=== PATIENT | male | born 2005 | race Caucasian/White ===

== ENCOUNTER 2024-10-24 13:23 | Emergency (ER) | payer OTHER, SELFPAY ==
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
[2024-10-24] VITALS (9 sets, daily range): BP systolic 146; BP diastolic 93; PULSE 89–107; TEMP 36.6; O2SAT 96; BMI 18.3
--- OUTSIDE RECORDS SUMMARY | 2024-10-24 13:36 | XMS_ITS | Clinical Summary ---
Author Organization [facility] Address [address] [place] [address] Care Team Providers Care Tax Investigator Name Role Phone Unavailable Primary Care Provider Unavailabl e Allergies No known active allergies Medications No known medications Active Problems Problem Noted Date Diagnosed Date Sports physical 02/10/2017 Immunizations Immunization Administration Dates Next Due Tdap 08/14/2023 Social History Tobacco Use Types Packs/Day Years Used Date Smoking Tobacco: Never Smokeless Tobacco: Never Tobacco Cessation:Counseling Given: Not Answered Alcohol Use Standard Drinks/Week Comments No 0 (1 standard drink = 0.6 oz pur e alcohol) AUDIT-C Answer Date Recorded Q1: How often do you have a drink containing alcohol? Never 12/23/2023 Q2: How many drinks containi ng alcohol do you have on a typical day when you are drinking? Patient does not drink Q3: How often do you have si x or more drinks on one occasion? Never 12/23/2023 Sex and Gender Information Value Date Recorded Sex Assigned at Not on file Legal Sex Male 6:31 PM EDT Gender Identity Not on file Sexual Orientation Not on file Last Filed Vital Signs Vital Sign Reading Time Taken Comments Blood Pressure 119/79 01/29/2024 9:22 AM EDT Pulse 73 01/29/2024 9:22 AM EDT Temperature 36.8 C (98.3 F) 12/23/2023 3:47 PM EDT Respiratory Rate 18 12/23/2023 5:37 PM EDT Oxygen Saturation 98% 12/23/2023 5:37 PM EDT Inhaled Oxygen Concentration - - Weight 61.2 kg (135 lb) 01/29/2024 9:22 AM EDT Height 177.8 cm (5' 10 ) 01/29/2024 9:22 AM EDT Body Mass Index 19.37 01/29/2024 9:22 AM EDT Plan of Treatment Health Maintenance Due Date Last Done Comments HIV Screening 2003 Depression Screening 2015 HPV Vaccines (1 - Male 3-dose series) 09/13/2018 Meningococcal B Vaccine (1 of 2 - Standard) 2019 Hepatitis C Screening 09/13/2021 COVID-19 Vaccine (1 - season) 2023 Influenza Vaccine (#1) 2024 8, 01/28/2005, 05/01/2004, Additional history exists DTaP/Tdap/Td Vaccines (8 - Td or Tdap) 08/13/2033 08/14/2023, 11/24/2015, 01/22/2008, Additional history exists Zoster Vaccines (1 of 2) 09/13/2053 008, 02/13/2007, 2004 RSV Immunization for Adults (1 - 1-dose 75+ series) 09/13/2078 Pneumococcal Vaccine: Pediatrics (0 to 5 Years) and At-Risk Patients (6 to 49 Years) Aged Out 2004, 03/27/2004, 01/24/2004, Additional history exists No longer eligible based on patient's age to complete this topic HIB Vaccines Completed 02/13/2007, 12/31, 03/27/2004, Additional history exists Hepatitis B Vaccines Completed 02/13/2007, 03/27/2004, 2003, Additional history exists IPV Vaccines Completed 01/22/2008, 01/29, 2003 MMR Vaccines Completed 01/22/2008, 01/29, 2004 Varicella Vaccines Completed 01/22/2008, 1 04/15/2006, 2004 Meningococcal Vaccine Aged Out 11/24/2015 No [place] steph eligible based on patient's age to complete this topic Hepatitis A Vaccines Aged Out No long er eligible based on patient's age to complete this topic RSV Immunization under 20 Months Aged Out No longer eligible based on patient's age to complete this topic Rotavirus Vaccines Aged Out No longer eligible based on patient's age to complete this topic Insurance [facility] MEDICAID [id number]
--- OUTSIDE RECORDS SUMMARY | 2024-10-24 13:36 | XMS_ITS | Clinical Summary ---
Author Organization [facility] [employer] [facility] Address [id number] [address] 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, hypnotic, or anxiolytic drug ([facility]) (Primary Dx); Lactic acidosis; Tachycardia Discharge Disposition: Home 07/27/2024 Travel from Last 3 Months Family History Medical History Relation Name Comments Heart failure Father Valvular heart disease Paternal Grandfather Relation Name Status Comments Father Paternal Grandfather Alive Social History Tobacco Use Types Packs/Day Years Used Date Smoking Tobacco: Never Smokeless Tobacco: Never Tobacco Cessation:Counseling Given: Not Answered [facility] Utilities Answer Date Recorded In the past 12 months has Sonics, gas, oil, or water [employer] threatened to shut off services in your home? No 07/28/2024 PRAPARE - Transportation Answer Date Re corded In the past 12 months, has l ack of transportation kept you from medical appointments or from getting medications? No 07/01 In the past 12 months, has l ack of transportation kept you from meetings, work, or from getting things needed for daily living? No 07/28/2024 Housing Instability Answer Date Recorde d Are you worried or concerned that in the next two months you may not have stable housing that you own, rent or stay in as a part of a household? No 07/28/2024 Hunger Screening Answer Date Recorded Within the past 12 months we worried whether our food would run out before we got money to buy more. Never True 07/28/2024 Within the past 12 months th e food we bought just didn't last and we didn't have money to get more. Never True 07/28/2024 Sex and Gender Information Value Date Recorded Sex Assigned at Not on file Legal Sex Male 11:38 PM EDT Gender Identity Not on file Sexual Orientation Not on file Last Filed Vital Signs Vital Sign Reading Time Taken Comments Blood Pressure 129/96 07/29/2024 8:11 AM EDT reported to nurse Pulse 75 07/29/2024 8:11 AM EDT Temperature 36.6 C (97.9 F) 07/29/2024 8:11 AM EDT Respiratory Rate 16 07/29/2024 8:11 AM EDT Oxygen Saturation 100% 07/29/2024 8:1 1 AM EDT Inhaled Oxygen Concentration - - Weight 61.1 kg (134 lb 11.2 oz) 07/28/2024 5:56 AM EDT Height 180.3 cm (5' 11 ) 07/28/2024 5:5 6 AM EDT Body Mass Index 18.79 07/28/2024 5:56 AM EDT Plan of Treatment Health Maintenance Due Date Last Done Comments Depression Screening 2015 Influenza Vaccine 11/29/2024 01/22/2008, , 05/01/2004, Additional history exists Tobacco Screening 07/27/2025 07/27/2024 Adult BMI Screening 07/28/2025 07/28/2024 DTaP,Tdap and Td Vaccines (7 - Td or Tdap) 08/13/2033 08/14/2023, 01/22/2008, 02/13/2007, Additional history exists Goals Goal Patient Goal Type Associated Problems Recent Progress Patient-Stated? Author Return to [facility] General Yes Marivel Florian, RN Note: Evaluation of progress towards goal: Patient plans to return to [facility]. Medical Devices Not on file Procedures Procedure Name Priority Date/Time Associated Diagnosis Comments CBC WITH AUTO DIFFERENTIAL Routine 07/29/2024 4:17 AM EDT MAGNESIUM Routine 07/29/2024 4:17 AM EDT COMPREHENSIVE METABOLIC PANEL Routine 07/29/2024 4:17 AM EDT EXTRA TUBES BLUE TOP Routine 07/29/2024 4:15 AM EDT EXTRA TUBES Routine 07/29/2024 4:15 AM EDT EXTRA TUBES BLUE TOP Routine 07/28/2024 9:20 AM EDT EXTRA TUBES Routine 07/28/2024 9:20 AM EDT COMPREHENSIVE METABOLIC PANEL STAT Add-on 07/28/2024 9:14 AM EDT CBC WITH AUTO DIFFERENTIAL STAT 07/28/2024 9:14 AM EDT LACTATE W/ REFLEX STAT 07/28/2024 6:4 3 AM EDT ER EXTRA URINE CULTURE Routine 07/28/2024 6:23 AM EDT URINALYSIS STAT 07/28/2024 5:56 AM EDT DRUG SCREEN, URINE STAT 07/28/2024 5: 56 AM EDT XR CHEST 1 VW STAT 07/28/2024 2:42 AM EDT LACTATE W/ REFLEX STAT 07/28/2024 2:0 6 AM EDT ETHANOL STAT Add-on 07/28/2024 2:06 AM EDT ECG 12-LEAD STAT 07/28/2024 2:00 AM EDT EXTRA TUBES BLUE TOP Routine 07/28/2024 12:40 AM EDT EXTRA TUBES Routine 07/28/2024 12:40 AM EDT LIPASE STAT 07/28/2024 12:39 AM EDT COMPREHENSIVE METABOLIC PANEL STAT 07/28/2024 12:39 AM EDT CBC WITH AUTO DIFFERENTIAL STAT 07/28/2024 12:39 AM EDT ECG 12-LEAD STAT 07/28/2024 12:36 AM EDT PM ED CRITICAL CARE Routine 07/28/2024 1 2:36 AM EDT from Last 3 Months Results * (ABNORMAL) CBC auto differential (07/29/2024 4:17 AM EDT) Only the most recent of3 resultswithin the time period is included. WBC 4.9 4 - 11 x10E9/L 07/29/2024 5:12 AM EDT [facility] RBC Count 3.82(L) 4.1 - 5.7 X10E12/L 07/29/2024 5:12 AM EDT [facility] Hemoglobin 13.4 13 - 17 g/dL 07/29/2024 5:12 AM EDT [facility] Hematocrit 38.1(L) 39 - 50 % 07/29/2024 5:12 AM EDT [facility] MCV 100 80 - 100 fL 07/29/2024 5:12 AM EDT [facility] MCH 35.0(H) 27 - 34 pg 07/29/2024 5:12 AM EDT [facility] MCHC 35.0 32 - 36 g/dL 07/29/2024 5:12 AM EDT [facility] RDW 14.0 11.5 - 15 % 07/29/2024 5:12 AM EDT [facility] Platelet Count 102(L) 150 - 450 X10E9/L 07/29/2024 5:12 AM EDT [facility] MPV 8.2 7 - 12 fL 07/29/2024 5:12 AM EDT [facility] Neutrophils % 67.8 % 07/29/2024 5:12 AM EDT [facility] Lymphocytes % 20.5 % 07/29/2024 5:12 AM EDT [facility] Monocytes % 8.8 % 07/29/2024 5:12 AM EDT [facility] Eosinophils % 2.0 % 07/29/2024 5:12 AM EDT [facility] Basophils % 0.9 % 07/29/2024 5:12 AM EDT [facility] Neutrophils Absolute (A) 3.3 10*3/uL 07/29/2024 5:12 AM EDT [facility] Lymphocytes Absolute 1.0 10*3/uL 07/29/2024 5:12 AM EDT [facility] Monocytes Absolute 0.4 10*3/uL 07/29/2024 5:12 AM EDT [facility] Eosinophils Absolute 0.1 10*3/uL 07/29/2024 5:12 AM EDT [facility] Basophils Absolute 0.0 10*3/uL 07/29/2024 5:12 AM EDT [facility] Differential Type AUTOMATED DIFFERENTIAL 07/29/2024 5:12 AM EDT [facility] Blood 07/29/2024 4:17 AM EDT 07/29/2024 4:55 AM EDT us Trang Good [employer]IVE [employer]ING MACHINE MECHANIC LAB BLOOD ORDERABLES Final Result [facility] [address] [place] [address], * Magnesium (07/29/2024 4:17 AM EDT) MAGNESIUM 1.9 1.8 - 2.6 mg/dL 07/29/2024 6:11 AM EDT [facility] Blood 07/29/2024 4:17 AM EDT 07/29/2024 4:55 AM EDT us Trang Florentino CIFUENTESNOnesimoPRINTING MACHINE MECHANIC LAB BLOOD ORDERABLES Final Result [facility] [address] [place] [address], [place] * (ABNORMAL) Comprehensive metabolic panel (07/29/2024 4:17 AM EDT) Only the most recent of3 resultswithin the time period is included. SODIUM 133(L) 134 - 146 mmol/L 07/29/2024 6:11 AM EDT [facility] POTASSIUM 3.6 3.5 - 5.0 mmol/L 07/29/2024 6:11 AM EDT [facility] CHLORIDE 103 98 - 109 mmol/L 07/29/2024 6:11 AM EDT [facility] CARBON DIOXIDE 25 22 - 32 mmol/L 07/29/2024 6:11 AM EDT [facility] ANION GAP 5 5 - 15 mmol/L 07/29/2024 6:11 AM EDT [facility] BLOOD UREA NITROGEN 8 5 - 23 mg/dL 07/29/2024 6:11 AM EDT [facility] CREATININE 0.69(L) 0.70 - 1.20 mg/dL 07/29/2024 6:11 AM EDT [facility] Comment:METHOD TRACEABLE TO IDMS STANDARD GLUCOSE 79 65 - 99 mg/dL 07/29/2024 6:11 AM EDT [facility] CALCIUM 8.5 8.5 - 10.5 mg/dL 07/29/2024 6:11 AM EDT [facility] TOTAL PROTEIN 7.1 6.0 - 8.0 g/dL 07/29/2024 6:11 AM EDT [facility] ALBUMIN 4.0 3.2 - 5.3 g/dL 07/29/2024 6:11 AM EDT [facility] ALKALINE PHOSPHATASE 87 39 - 130 U/L 07/29/2024 6:11 AM EDT [facility] AST 78(H) <=41 U/L 07/29/2024 6:11 AM EDT [facility] ALT 51(H) <=40 U/L 07/29/2024 6:11 AM EDT [facility] BILIRUBIN,TOTAL 1.0 0.3 - 1.2 mg/dL 07/29/2024 6:11 AM EDT [facility] EGFR Non-Race Dependent >90 >=60 ml/min/1.7 3sq.m 07/29/2024 6:11 AM EDT [facility] Comment: eGFR not reported due to non-numeric value for Creatinine. Reported eGFR is based on the CKD-EPI 2020 equation that does not use a race coefficient. Blood 07/29/2024 4:17 AM EDT 07/29/2024 4:55 AM EDT us Trang ROSE LAB BLOOD ORDERABLES Final Result [address] [place] [address], [place] * Light Blue Top (07/29/2024 4:15 AM EDT) Only the most recent of3 resultswithin the time period is included. Extra Tube Auto Resulted 07/29/2024 6:04 AM EDT [facility] Blood Venous blood / Unknown 07/29/2024 4:15 AM EDT 07/29/2024 4:56 AM EDT us Pedrito Germain MD LAB BLOOD ORDERABLES Final Resu lt [address] [place] [address], [place] * Lactate w/ Reflex (07/28/2024 6:43 AM EDT) Only the most recent of2 resultswithin the time period is included. LACTATE W/REFLEX 1.1 0.4 - 2.0 mmol/L 07/28/2024 7:03 AM EDT [facility] Blood Venous blood / Unknown 07/28/2024 6:43 AM EDT 07/28/2024 6:47 AM EDT Narrative [facility] - 07/28/2024 7:03 AM EDT Result did not trigger repeat Lactate, re-order if needed. us Matthew Jacinto DO LAB BLOOD ORDERABLES Final Resul t Performing Organization Address City/[facility]/ZIP Co de Phone Number [address] [place] [address], [place] * ER EXTRA URINE CULTURE (07/28/2024 6:23 AM EDT) Extra Tube 07/28/2024 5:11 PM EDT [facility] Urine 07/28/2024 6:23 AM EDT 07/28/2024 6:24 AM EDT us Pedrito Germain MD URINE ORDERABLES Final Result Performing Organization Address City/[facility]/ZIP Co de Phone Number [address] [place] [address], [place] * (ABNORMAL) Drug Screen, Urine (07/28/2024 5:56 AM EDT) AMPHETAMINE/METHAM P Negative Negative 07/28/2024 6:55 AM EDT [facility] Comment:AMPH/METH screening cut off = 1000 ng/mL COCAINE METABOLITE Negative Negative 2024 6:55 AM EDT [facility] Comment:Cocaine screening cu t off value = 300 ng/mL ECSTASY Negative Negative 07/28/2024 6:55 AM EDT [facility] Comment:Ecstasy screening cu t off value = 500 ng/mL METHADONE Negative Negative 07/28/2024 6:55 AM EDT [facility] Comment:Methadone screening cut off value = 300 ng/mL. OPIATES Negative Negative 07/28/2024 6:55 AM EDT [facility] Comment: Opiates screening cut off value = 300 ng/mL This test is used for the detection of codeine, hydrocodone (>1000 ng/mL), morphine and hydromorphone (>900 ng/mL) in urine. OXYCODONE Negative Negative 07/28/2024 6:55 AM EDT [facility] Comment: Oxycodone screening cut off value = 300 ng/mL This test is used for the detection of oxycodone and oxymorphone in urine. PHENCYCLIDINE Negative Negative 07/28/2024 6:55 AM EDT [facility] Comment:Phencyclidine screen ing cut off value = 25 ng/mL CANNABINOIDS Negative Negative 07/28/2024 6:55 AM EDT [facility] Comment:Cannabinoids/THC scr eening cut off value = 50 ng/mL Urine Barbiturates Positive(A) Negative 07/28 6:55 AM EDT [facility] Comment:Barbiturates screeni ng cut off value = 200 ng/mL BENZODIAZEPINES Negative Negative 6:55 AM EDT [facility] Comment:Benzodiazepines scre ening cut off value = 200 ng/mL Urine Urine specimen collection, clean catch / Unknown 07/28/2024 5:56 AM EDT 07/28/2024 6:10 AM EDT us Matthew Jacinto DO URINE ORDERABLES Final Result [facility] [address] [place] [address], [place] * (ABNORMAL) Urinalysis (07/28/2024 5:56 AM EDT) COLOR Yellow Yellow 07/28/2024 6:54 AM EDT [facility] TURBIDITY Clear Clear 07/28/2024 6:54 AM EDT [facility] SPECIFIC GRAVITY 1.015 1.003 - 1.035 07/28/2024 6:54 AM EDT [facility] NITRITE Negative Negative 07/28/2024 6:54 AM EDT [facility] PH,URINE 7.5 5.0 - 8.5 07/28/2024 6:54 AM EDT [facility] LEUKOCYTE ESTERASE Negative Negative 07/28/2024 6:54 AM EDT [facility] PROTEIN Trace(A) Negative 07/28/2024 6:54 AM EDT [facility] KETONES (URINE) 15 mg/dL(A) Negative 07/29/19 6:54 AM EDT [facility] UROBILINOGEN 0.2 eu/dL 0.2 eu/dL, 1.0 eu/dL 07/28/2024 6:54 AM EDT [facility] BILIRUBIN (URINE) Negative Negative 07/28/2024 6:54 AM EDT [facility] BLOOD/HGB Negative Negative 07/28/2024 6:54 AM EDT [facility] GLUCOSE (URINE) Negative Negative, 250 mg/dL 07/28/2024 6:54 AM EDT [facility] Urine Urine specimen collection, clean catch / Unknown 07/28/2024 5:56 AM EDT 07/28/2024 6:10 AM EDT Narrative [facility] - 07/28/2024 6:54 AM EDT Urine received without preservative. Delays in transport may affect results. Interpret with caution. A clinical correlation is recommended. us Matthew Jacinto DO URINE ORDERABLES Final Result [facility] [address] [place] [address], [place] * X-ray chest 1 view (07/28/2024 2:42 AM EDT) Anatomical Region Laterality Modality Body, Chest N/A Computed Radiogr aphy 07/28/2024 2:46 AM EDT Narrative 07/28/2024 2:47 AM EDT Clinical history: Cough. Rapid heart rate. Comparisons: None Findings: AP portable upright chest radiograph obtained at 2:34 AM. Heart size and pulmonary vasculature appear within normal limits. Lungs appear clear. No pleural effusion nor pneumothorax. IMPRESSION: No evidence for acute cardiopulmonary disease. Finalized by Satish Flannery MD on 07/28/2024 2:47 AM Procedure Note Satish Flannery MD - 07/28/2024 Clinical history: Cough. Rapid heart rate. Comparisons: None Findings: AP portable upright chest radiograph obtained at 2:34 AM. Heartsize and pulmonary vasculature appear within normal limits. Lungs appearclear. No pleural effusion nor pneumothorax. IMPRESSION: No evidence for acute cardiopulmonary disease. Finalized by Satish Flannery MD on 07/28/2024 2:47 AM us Matthew Jacinto DO IMG DIAGNOSTIC IMAGING ORDERABLE S Final Result * Ethanol (07/28/2024 2:06 AM EDT) ETHANOL <0.010 <=0.080 g/dL 07/28/2024 2:25 AM EDT [facility] Comment: This report is intended for use in clinical monitoring or management of patients. Blood Venous blood / Unknown 07/28/2024 2:06 AM EDT 07/28/2024 2:08 AM EDT us Matthew Jacinto DO LAB BLOOD ORDERABLES Final Resul t [facility] [address] [place] [address], * Electrocardiogram, 12-lead (07/28/2024 2:00 AM EDT) Only the most recent of2 resultswithin the time period is included. 07/28/2024 2:00 AM EDT Narrative [facility] - 07/28/2024 3:09 AM EDT us Matthew Jacinto DO ECG ORDERABLES Final Result [facility] * (ABNORMAL) Lipase (07/28/2024 12:39 AM EDT) LIPASE 56(H) 17 - 40 U/L 07/28/2024 1:07 AM EDT [facility] Blood Venous blood / Unknown 07/28/2024 12:39 AM EDT 07/28/2024 12:45 AM EDT us Matthew Jacinto DO LAB BLOOD ORDERABLES Final Resul t Performing Organization Address [facility] Co de Phone Number [facility] [address] [place] [address], * Critical Care (07/28/2024 12:36 AM EDT) Narrative Matthew Jacinto DO - 07/28/2024 12:36 AM EDT Matthew Jacinto DO 07/28/2024 3:33 AM Critical Care Performed by: Matthew Jacinto DO Authorized by: Matthew Jacinto DO Critical care provider statement: Critical care time (minutes): 35 Critical care time was exclusive of: Separately billable procedures and treating other patients Critical care was necessary to treat or prevent imminent or life-threatening deterioration of the following conditions: Toxidrome Critical care was time spent personally by me on the following activities: Development of treatment plan with patient or surrogate, discussions with primary provider, evaluation of patient's response to treatment, examination of patient, interpretation of cardiac output measurements, obtaining history from patient or surrogate, ordering and performing treatments and interventions, ordering and review of laboratory studies, ordering and review of radiographic studies, pulse oximetry, re-evaluation of patient's condition and review of old charts I assumed direction of critical care for this patient from another provider in my specialty: no Care discussed with: admitting provider us Matthew A Park DO PROCEDURE/MINOR SURGICAL ORDERAB LES Final Result from Last 3 Months Insurance [facility] MEDICAID Advance Directives * Full Code (Latest Code Status on File) Date Activated Date Inactivated Comments 07/28/2024 3:21 AM 07/29/2024 6:01 PM Care Teams Rn Clinical Coordinator Relationship Specialty Start Date End Date No Pcp, No Pcp GRANT Umanzor [id number] PCP - General Family Medicine 07/27/24
--- OUTSIDE RECORDS SUMMARY | 2024-10-24 13:36 | XMS_ITS | Clinical Summary ---
Author Organization [facility] Address [facility] [place] [address] Care Team Providers Care Palm Gatherer Name Role Phone Unavailable Primary Care Provider Unavailabl e Allergies No known active allergies Medications cephALEXin (KEFLEX) 500 mg capsule Take 1 capsule by mouth four times daily for 5 days. 20 capsule 10/02/2024 10/08/19 25 Encounters Date Type Department Care Team Description 10/20/2024 1:50 PM EDT Office Visit Orthopaedic Surgery [facility] [address] [place] [address] Ericka Vasquez PA-C Unspecified open wound of left index finger without damage to nail, initial encounter 10/02/2024 2:09 PM EDT - 10/02/2024 3:57 PM EDT Emergency [facility] [address] [place] [address] [place] Discharge Disposition: Home 10/02/2024 Travel 07/27/2024 10:48 AM EDT - 07/27/2024 4:12 PM EDT Emergency [facility] Emergency Department [address] [place] [id number] detox Discharge Disposition: AMA/Discontinuation of Care-Use additional discharge code 07/27/2024 Travel from Last 3 Months Immunizations Immunization Administration Dates Next Due tetanus diphtheria pertussis (Tdap) vaccine, age 7+ yr (ADACEL, BOOSTRIX) 08/14/2023 Social History Tobacco Use Types Packs/Day Years Used Date Smoking Tobacco: Never Assessed Area Deprivation Index Answer Date Jaxon rded National Score (1-100), lower number is lower ri sk 57 10/03/2024 State Score (1-10), lower number is lower risk 3 10/03/2024 Data from: https://www.neighborhoodatlas.medicine.[facility]/. Last address used for calculation [address] 10/03/2024 Sex and Gender Information Value Date Recorded Sex Assigned at Not on file Legal Sex Male 10:48 AM EDT Gender Identity Not on file Sexual Orientation Not on file Last Filed Vital Signs Vital Sign Reading Time Taken Comments Blood Pressure 112/87 10/02/2024 2:12 PM EDT Pulse 85 10/02/2024 2:45 PM EDT Temperature 36.6 C (97.8 F) 10/02/2024 2:12 PM EDT Respiratory Rate 18 10/02/2024 2:12 PM EDT Oxygen Saturation 98% 10/02/2024 2:45 PM EDT Inhaled Oxygen Concentration - - Weight 64.1 kg (141 lb 5 oz) 10/02/2024 2:12 PM EDT Height - - Body Mass Index - - Plan of Treatment Upcoming Encounters Date Type Department Care Team (Late st Contact Info) Description 11/10/2024 1:50 PM EDT Office Visit Orthopaedic Surgery [facility] [address] [place] [address] Ericka Vasquez PA-C [address] [place], [place] [id number] Return in about 3 weeks (around 11/10/2024) for Follow-up with Kary Vasquez, with OT. Health Maintenance Due Date Last Done Comments Peds To Adult Transition Ini tial Discussion 2015 Peds To Adult Transition Elizabeth ual Assessment 09/13/2017 HPV Vaccine (1 - Male 3-dose series) 09/13/2018 Meningococcal B Vaccine (1 o f 2 - Standard) 2019 Anxiety Screening 09/13/2021 Depression Screening 09/13/2021 HIV Screening 09/13/2021 Hepatitis C Screening 09/13/2021 Influenza Vaccine (#1) 2024 8, 01/28/2005, 05/01/2004, Additional history exists DTaP,Tdap,Td Vaccine (8 - Td or Tdap) 08/13/2033 08/14/2023, 11/24/2015, 01/22/2008, Additional history exists Hepatitis B Vaccine Completed 03/27/2004, 2003, 2003 Procedures Procedure Name Priority Date/Time Associated Diagnosis Comments ED NOTEWRITER PROCEDURE SPLINT APPLICATION Routine 10/02/2024 3:49 PM EDT XR DIGIT GENERAL 3V FRONTAL/LAT/OBL LEFT STAT 10/02/2024 2:43 PM EDT HIGH SENSITIVITY TROPONIN T (SECOND) STAT 07/27/2024 12:13 PM EDT XR CHEST 2V FRONTAL/LAT STAT 07/27/2024 11:55 AM EDT HIGH SENSITIVITY TROPONIN T (INITIAL) STAT 07/27/2024 11:08 AM EDT CBC + DIFF STAT 07/27/2024 11:08 AM EDT COMPREHENSIVE METABOLIC PANEL STAT 07/27/2024 11:08 AM EDT EKG Routine 07/27/2024 10:56 AM EDT ECG COMPLETE STAT 07/27/2024 10:56 AM EDT from Last 3 Months Results * SPLINT APPLICATION (10/02/2024 3:49 PM EDT) Narrative Anna Sandoval MD - 10/02/2024 3:49 PM EDT Anna Sandoval MD 10/02/2024 7:24 PM SPLINT APPLICATION Date/Time: 10/02/2024 3:49 PM Performed by: Edel Hagan APRN.OFFICE BOOKKEEPER Authorized by: Edel Hagan APRN.OFFICE BOOKKEEPER Pre-procedure details: Sensation: Normal Skin color: Vergas Procedure details: Laterality: Left Location: Finger Finger: L index finger Splint type: Finger Supplies: Aluminum splint Post-procedure details: Pain: Improved Sensation: Normal Skin color: [place] Patient tolerance of procedure: Tolerated well, no immediate complications us Edel Hagan APRN.OFFICE BOOKKEEPER PROCEDURE Final R esult * XR DIGIT GENERAL 3V FRONTAL/LAT/OBL LEFT (10/02/2024 2:43 PM EDT) Anatomical Region Laterality Modality Fingers Radiographic Belia ging 10/02/2024 2:43 PM EDT Impressions 10/02/2024 3:34 PM EDT IMPRESSION: No acute osseous abnormality in the left index finger. Director Critical Care: LAURA Transcribe Date/Time: Oct 02 2024 3:30P Dictated by : EMANI ESPARZA MD This examination was interpreted and the report reviewed and electronically signed by: EMANI ESPARZA MD on Oct 02 2024 3:32PM EST Narrative 10/02/2024 3:34 PM EDT * * *Final Report* * * DATE OF EXAM: Oct 02 2024 2:43PM [id number] - XR DIGIT 3V FRONTAL/LAT/OBL LT / PROCEDURE REASON: Hand trauma, no prior imaging * * * * Physician Interpretation * * * * XR DIGIT 3V FRONTAL/LAT/OBL LT INDICATION: Left index finger laceration and bleeding, Hand trauma, no prior imaging COMPARISON: None. TECHNIQUE: Left index finger radiograph; 3 views RESULT: No acute fracture, dislocation or suspicious osseous lesion. Partially imaged likely old fracture deformity of the styloid process in the ulna. The joint spaces and anatomic alignment are maintained. Procedure Note Provider, [facility] - 10/02/2024 * * *Final Report* * * DATE OF EXAM: Oct 02 2024 2:43PM [id number] - XR DIGIT 3V FRONTAL/LAT/OBL LT / PROCEDURE REASON: Hand trauma, no prior imaging * * * * Physician Interpretation * * * * XR DIGIT 3V FRONTAL/LAT/OBL LT INDICATION: Left index finger laceration and bleeding, Hand trauma, no prior imaging COMPARISON: None. TECHNIQUE: Left index finger radiograph; 3 views RESULT: No acute fracture, dislocation or suspicious osseous lesion. Partially imaged likely old fracture deformity of the styloid process in the ulna. The joint spaces and anatomic alignment are maintained. IMPRESSION IMPRESSION: No acute osseous abnormality in the left index finger. Director Critical Care: CISCOB Transcribe Date/Time: Oct 02 2024 3:30P Dictated by : EMANI ESPARZA MD This examination was interpreted and the report reviewed and electronically signed by: EMANI ESPARZA MD on Oct 02 2024 3:32PM EST us Edel Hagan UNIT TRUST MANAGER.OFFICE BOOKKEEPER RAD-PAMA Final R esult * HIGH SENSITIVITY TROPONIN T (SECOND) (07/27/2024 12:13 PM EDT) YO High Sensitivity <6 <12 ng/L 07/27/2024 12:55 PM EDT [facility] Blood BLOOD SPECIMEN / Unknown Venipuncture / Unknown 07/27/2024 12:13 PM EDT 07/27/2024 12:25 PM EDT Gt Dolores LABORATORY Final Result [facility] [address] [place] [address], [place] * XR CHEST 2V FRONTAL/LAT (07/27/2024 11:55 AM EDT) Anatomical Region Laterality Modality Chest Radiographic Belia ging 07/27/2024 11:5 5 AM EDT Impressions 07/27/2024 12:11 PM EDT IMPRESSION: No acute radiographic abnormality. Director Critical Care: PSCB Transcribe Date/Time: Jul 27 2024 12:08P Dictated by : JESUS TANNER MD This examination was interpreted and the report reviewed and electronically signed by: JESUS TANNER MD on Jul 27 2024 12:09PM EST Narrative 07/27/2024 12:11 PM EDT * * *Final Report* * * DATE OF EXAM: Jul 27 2024 11:55AM [id number] - XR CHEST 2V FRONTAL/LAT / PROCEDURE REASON: Chest Pain * * * * Physician Interpretation * * * * EXAMINATION: CHEST RADIOGRAPH (2 VIEW FRONTAL & LATERAL) CLINICAL HISTORY: Chest Pain MQ: XC2_6 EXAM DATE/TIME: 07/27/2024 11:55 AM COMPARISON: No relevant prior studies available. RESULT: Lines, tubes, and devices: None. Lungs and pleura: No consolidation. No lung mass. No pleural effusion. No pneumothorax. Cardiomediastinal silhouette: Normal cardiomediastinal silhouette. Bones and soft tissues: Unremarkable. Procedure Note Provider, [facility] - 07/27/2024 * * *Final Report* * * DATE OF EXAM: Jul 27 2024 11:55AM [id number] - XR CHEST 2V FRONTAL/LAT / PROCEDURE REASON: Chest Pain * * * * Physician Interpretation * * * * EXAMINATION: CHEST RADIOGRAPH (2 VIEW FRONTAL & LATERAL) CLINICAL HISTORY: Chest Pain MQ: XC2_6 EXAM DATE/TIME: 07/27/2024 11:55 AM COMPARISON: No relevant prior studies available. RESULT: Lines, tubes, and devices: None. Lungs and pleura: No consolidation. No lung mass. No pleural effusion. No pneumothorax. Cardiomediastinal silhouette: Normal cardiomediastinal silhouette. Bones and soft tissues: Unremarkable. IMPRESSION IMPRESSION: No acute radiographic abnormality. Director Critical Care: LAURA Transcribe Date/Time: Jul 27 2024 12:08P Dictated by : JESUS TANNER MD This examination was interpreted and the report reviewed and electronically signed by: JESUS TANNER MD on Jul 27 2024 12:09PM EST Gt Bernal DO RAD-PAMA Final Result * HIGH SENSITIVITY TROPONIN T (INITIAL) (07/27/2024 11:08 AM EDT) [facility] YO High Sensitivity <6 <12 ng/L 07/27/2024 11:44 AM EDT [facility] Blood BLOOD SPECIMEN / Unknown Venipuncture / Unknown 07/27/2024 11:08 AM EDT 07/27/2024 11:[address] [facility] Final Result [facility] [address] [place] [address], * (ABNORMAL) COMPREHENSIVE METABOLIC PANEL (07/27/2024 11:08 AM EDT) [facility] Protein, Total 8.1(H) 6.3 - 8.0 g/dL 07/27/2024 11:42 AM EDT [facility] Albumin 4.6 3.9 - 4.9 g/dL 07/27/2024 11:42 AM EDT [facility] Calcium, Total 9.1 8.5 - 10.2 mg/dL 07/27/2024 11:42 AM EDT [facility] Bilirubin, Total 0.5 0.2 - 1.3 mg/dL 07/27/2024 11:42 AM EDT [facility] Alkaline Phosphatase 122(H) 38 - 113 U/L 07/27/2024 11:42 AM EDT [facility] AST 104(H) 14 - 40 U/L 07/27/2024 11:42 AM EDT [facility] ALT 63(H) 10 - 54 U/L 07/27/2024 11:42 AM EDT [facility] Glucose 109(H) 74 - 99 mg/dL 07/27/2024 11:42 AM EDT [facility] Comment: The [place] Diabetes Association (ADA) provides guidance for cutoff values for fasting glucose and random glucose. The ADA defines fasting as no caloric intake for at least 8 hours. Fasting plasma glucose results between 100 to 125 mg/dL indicate increased risk for diabetes (prediabetes). Fasting plasma glucose results greater than or equal to 126 mg/dL meet the criteria for diagnosis of diabetes. In the absence of unequivocal hyperglycemia, results should be confirmed by repeat testing. In a patient with classic symptoms of hyperglycemia or hyperglycemic crisis, random plasma glucose results greater than or equal to 200 mg/dL meet the criteria for diagnosis of diabetes. Reference: Standards of Medical Care in Diabetes 2016, [place] Diabetes Association. Diabetes Care. 2016.39(Suppl 1). BUN 9 9 - 24 mg/dL 07/27/2024 11:42 AM EDT [facility] Creatinine 0.89 0.73 - 1.22 mg/dL 07/27/2024 11:42 AM EDT [facility] Sodium 142 136 - 144 mmol/L 07/27/2024 11:42 AM EDT [facility] Potassium 3.9 3.7 - 5.1 mmol/L 07/27/2024 11:42 AM EDT [facility] Chloride 98 98 - 107 mmol/L 07/27/2024 11:42 AM EDT [facility] CO2 28 22 - 30 mmol/L 07/27/2024 11:42 AM EDT [facility] Anion Gap 16(H) 8 - 15 mmol/L 07/27/2024 11:42 AM EDT [facility] Estimated Glomerular Filtration Rate 126 >=60 mL/min/1. 73m 07/27/2024 11:42 AM EDT [facility] Comment:Estimated Glomerular Filtration Rate (eGFR) is calculated using the 2020 CKD-EPI creatinine equation. This equation utilizes serum creatinine, sex, and age as parameters. The creatinine assay has traceable calibration to isotope dilution- mass spectrometry. Refer to KDIGO guidelines for clinical interpretation. In patients with unstable renal function, e.g. those with acute kidney injury, the eGFR may not accurately reflect actual GFR. Blood BLOOD SPECIMEN / Unknown Venipuncture / Unknown 07/27/2024 11:08 AM EDT 07/27/2024 11:11 AM EDT us Gt Bernal DO LABORATORY Final Result [facility] [address] [place] [id number], * (ABNORMAL) COMPLETE BLOOD COUNT AND DIFFERENTIAL (07/27/2024 11:08 AM EDT) WBC 7.81 3.70 - 11.00 k/uL 07/27/2024 11:21 AM EDT [facility] RBC 4.54 4.20 - 6.00 m/uL 07/27/2024 11:21 AM EDT [facility] Hemoglobin 15.2 13.0 - 17.0 g/dL 07/27/2024 11:21 AM EDT [facility] Hematocrit 44.6 39.0 - 51.0 % 07/27/2024 11:21 AM EDT [facility] MCV 98.2 80.0 - 100.0 fL 07/27/2024 11:21 AM EDT [facility] MCH 33.5 26.0 - 34.0 pg 07/27/2024 11:21 AM EDT [facility] MCHC 34.1 30.5 - 36.0 g/dL 07/27/2024 11:21 AM EDT [facility] RDW-CV 13.0 11.5 - 15.0 % 07/27/2024 11:21 AM EDT [facility] Platelet Count 129(L) 150 - 400 k/uL 07/27/2024 11:21 AM EDT [facility] Comment:No clot detected. MPV 9.3 9.0 - 12.7 fL 07/27/2024 11:21 AM EDT [facility] Neutrophils % 76.5 % 07/27/2024 11:21 AM EDT [facility] Abs Neut 5.98 1.45 - 7.50 k/uL 07/27/2024 11:21 AM EDT [facility] Lymphocytes % 16.8 % 07/27/2024 11:21 AM EDT [facility] Abs Lymph 1.31 1.00 - 4.00 k/uL 07/27/2024 11:21 AM EDT [facility] Monocytes % 5.2 % 07/27/2024 11:21 AM EDT [facility] Abs Wilkes 0.41 <0.87 k/uL 07/27/2024 11:21 AM EDT [facility] Eosinophils % 0.4 % 07/27/2024 11:21 AM EDT [facility] Abs Eosin 0.03 <0.46 k/uL 07/27/2024 11:21 AM EDT [facility] Basophils % 0.8 % 07/27/2024 11:21 AM EDT [facility] Abs Baso 0.06 <0.11 k/uL 07/27/2024 11:21 AM EDT [facility] Immature Granulocytes % 0.3 % 07/27/2024 11:21 AM EDT [facility] Abs Immature Gran <0.03 <0.10 k/uL 025 11:21 AM EDT [facility] NRBC 0.0 /100 WBC 07/27/2024 11:21 AM EDT [facility] Absolute nRBC <0.01 <0.01 k/uL 07/27/2024 11:21 AM EDT [facility] Diff Type Auto 07/27/2024 11:21 AM EDT [facility] Blood BLOOD SPECIMEN / Unknown Venipuncture / Unknown 07/27/2024 11:08 AM EDT 07/27/2024 11:11 AM EDT us Gt Garciaton DO LABORATORY Final Result Performing Organization Address [facility] Co de Phone Number [facility] [address] [place] [address], [place] * ECG COMPLETE (07/27/2024 10:56 AM EDT) Ventricular Rate 121 BPM [facility] Atrial Rate 121 BPM [facility] P-R Interval 148 ms [facility] QRS Duration 102 ms [facility] QT Interval 310 ms [facility] QTC Calculation (Bazett) 440 ms [facility] Calculated P [place] 78 degrees [facility] Calculated R [place] 99 degrees [facility] Calculated T [place] 52 degrees [facility] 07/27/2024 10:5 6 AM EDT Impressions [facility] - 07/30/2024 9:15 AM EDT SINUS TACHYCARDIA POSSIBLE LEFT ATRIAL ENLARGEMENT RIGHTWARD AXIS CANNOT RULE OUT ANTERIOR INFARCT , AGE UNDETERMINED ABNORMAL ECG NO PREVIOUS ECGS AVAILABLE Confirmed by WILLARD HEAD MD ([id number]) on 07/30/2024 9:15:53 AM Narrative [facility] - 07/30/2024 9:15 AM EDT NAME : JOHNATHON MALDONADO PID : [id number] : 2005 Gender : Male Race : Unknown ORD : [id number] Procedure Date : Jul 27 2024 10:56:38 Edit Date : Jul 30 2024 09:15:55 Diagnosis: SINUS TACHYCARDIA POSSIBLE LEFT ATRIAL ENLARGEMENT RIGHTWARD AXIS CANNOT RULE OUT ANTERIOR INFARCT , AGE UNDETERMINED ABNORMAL ECG NO PREVIOUS ECGS AVAILABLE Confirmed by WILLARD HEAD MD ([id number]) on 07/30/2024 9:15:53 AM Test Reason : Chest Pain Location : 4 : [facility] Overread By : WILLARD HEAD MD Edited By : WILLARD HEAD MD Referred By : , Acquired by : KEHINDE MULLIGAN us Gt Dolores DO EKG Final Result Performing Organization Address City/[facility]/ZIP Co de Phone Number [facility] [address] [place] [address], [place] from Last 3 Months Insurance [address] [place] [address] [facility] [employer] [place]
--- OUTSIDE RECORDS SUMMARY | 2024-10-24 13:36 | XMS_ITS | Encounter Summary ---
Author Organization [facility] Address [address] [place] [address] Care Team Providers Care Ice Crusher Name Role Phone Any Daigle MD Primary Care Provider Encounter Details Date Type Department Care Team (Late st Contact Info) Description 04/30/2021 Scanned Document [facility] Emergency Dept [address] [place] [id number] Provider, [facility] Social History Tobacco Use Types Packs/Day Years Used Date Smoking Tobacco: Never Alcohol Use Standard Drinks/Week Comments No 0 (1 standard drink = 0.6 oz pur e alcohol) Sex and Gender Information Value Date Recorded Sex Assigned at Not on file Legal Sex Male 6:31 PM EDT Gender Identity Not on file Sexual Orientation Not on file documented as of this encounter Plan of Treatment Not on file documented as of this encounter Visit Diagnoses Not on filedocumented in this encounter Care Teams Ice Crusher Relationship Specialty Start Date End Date Any Daigle MD [address] [place] [address] PCP - General 12/21/15 06/10/22 documented as of this encounter
--- OUTSIDE RECORDS SUMMARY | 2024-10-24 13:36 | XMS_ITS | Encounter Summary ---
Author Organization [facility] Address [address] [place] [address] Care Team Providers Care Station Attendant Name Role Phone Any Daigle MD Primary Care Provider Encounter Details Date Type Department Care Team (Late st Contact Info) Description 08/01/2017 Scanned Document [facility] Legacy Dept Provider, [facility] Con[facility] Social History Tobacco Use [...] on filedocumented in this encounter Care Teams Station Attendant Relationship Specialty Start Date End Date Any Daigle MD [facility] [place] [address] PCP - General 12/21/15 06/10/22 documented as of this encounter
--- NOTE | 2024-10-24 13:54 | XR_ITS ---
The [place] [id number] Patient Name: JOEL LOPEZ MRN: [id number] date: 2005 Sex: M Assigned Patient Location: ER Current Patient Location: ER Accession/Order Number: [id number] Exam Date: 10/24/2024 14:23 Report Date: 10/24/2024 14:24 At the request of: DEENA VILLAR MD Procedure: XR chest 1V Single view chest: CLINICAL HISTORY: Chest pressure COMPARISON: None FINDINGS: The heart is normal in size. The lungs are clear. The pulmonary vasculature is normal. Mediastinum and hilar regions are unremarkable. No pleural effusions are seen. Visualized bones are intact. XR/XR chest 1V IMPRESSION: NEGATIVE CHEST. Impression dictated by: Randall Bowman Jr., D.O. 10/24/2024 2:24 PM Dictation Location: [place] [address] Electronically authenticated by: [id number] Y Date: 10/24/2024 14:24
--- NOTE | 2024-10-24 13:54 | ECG_ITS ---
The [facility] Test Date: 2024-10-24 Pat Name: JOEL LOPEZ Department: Room: - Gender: Male General Activities Therapist: : 2005 Requested By: [id number] Order Number: [id number] Reading MD: YUDI PAINTER M.D. Measurements Intervals Lee Rate: 98 P: 90 AR: 148 QRS: 94 QRSD: 98 T: 76 QT: 354 QTc: 410 Interpretive Statements 1100 Sinus rhythm 7102 Moderate right axis deviation 9110 normal ECG No previous ECG available for comparison Electronically Signed On 10-24-2024 19:44:57 EDT by YUDI PAINTER M.D.
--- NOTE | 2024-10-24 13:55 | ED.GENADUL1 ---
HPI HPI - General Adult General Chief complaint: Chest Pain Stated complaint: CHEST PRESSURE, VOMITING Time Seen by Provider: 10/24/24 13:39 Source: patient Mode of arrival: walk-in History of Present Illness HPI narrative: 19-year-old male presents for chest pressure which she has had since early this morning. He used cocaine for the first time 2 days ago. He has been having some palpitations since then. There was no injury and he does not complain of shortness of breath or back pain. His father of heart failure and his grandfather recently had bypass surgery. Related Data Allergies Allergy/AdvReac Type Severity Reaction Status Date / Time No Known Drug Allergies Allergy Verified 10/24/24 13:45 Review of Systems ROS Narrative A ten point review of systems is negative except as noted above. PFSH PFSH Social History Little interest or pleasure in doing things: not at all Feeling down, depressed, or hopeless: not at all Exam Narrative Exam Narrative: Nurses note and vital signs reviewed and patient is not hypoxic. General: The patient appears well and in no apparent distress. Patient is resting comfortably on cart. Skin: Warm, dry, no pallor noted. There is no rash noted. Head: Normocephalic, atraumatic Eye: Normal conjunctiva, no drainage Ears, Nose, Mouth, and Throat: oral mucosa is moist. Nares patent. Cardiovascular: Regular Rate and Rhythm Respiratory: Patient is in no distress, no accessory muscle use, lungs are clear to auscultation, no wheezing, rales or rhonchi Back: non-tender GI: Soft and nontender Musculoskeletal: The patient has no evidence of calf tenderness, no pitting edema, symmetrical pulses noted bilaterally Neurological: A&O, normal speech Psychiatric: Cooperative Constitutional Vital Signs, click to edit/add: Last Vital Signs Temp 97.8 F 10/24/24 13:42 Pulse 107 H 10/24/24 13:42 Resp 18 10/24/24 13:42 BP 146/93 H 10/24/24 13:42 Pulse Ox 96 10/24/24 13:42 O2 Del Method Room Air 10/24/24 13:42 Course Vital Signs Vital signs: Vital Signs Temperature 97.8 F 10/24/24 13:42 Pulse Rate 107 H 10/24/24 13:42 Respiratory Rate 18 10/24/24 13:42 Blood Pressure 146/93 H 10/24/24 13:42 Pulse Oximetry 96 10/24/24 13:42 Oxygen Delivery Method Room Air 10/24/24 13:42 Temperature 97.8 F 10/24/24 13:42 Pulse Rate 107 H 10/24/24 13:42 Respiratory Rate 18 10/24/24 13:42 Blood Pressure 146/93 H 10/24/24 13:42 Pulse Oximetry 96 10/24/24 13:42 Oxygen Delivery Method Room Air 10/24/24 13:42 Medical Decision Making MDM Narrative Medical decision making narrative: His workup is negative. We discussed cocaine and its deleterious effects on the body and he was advised to refrain from using it. Treatment diagnosis and follow-up were discussed with the patient. Differential Diagnosis Differential Diagnosis: Chest wall pain, pneumothorax, myocardial infarction Lab Data Lab results reviewed: Yes I reviewed the patient's lab results Labs: Lab Results 10/24/24 Range/Units 14:10 WBC 9.7 (4.0-11.0) 10^3/uL RBC 4.40 L (4.70-6.10) 10^6/uL Hgb 14.9 (14.0-18.0) g/dL Hct 43.0 (42.0-54.0) % MCV 97.7 H (80.0-94.0) fL MCH 33.9 (25.9-34.0) pg MCHC 34.7 (29.9-35.2) g/dL RDW 13.1 (11.0-15.0) % Plt Count 186 (150-450) 10^3/uL MPV 9.3 L (9.5-13.5) fL Seg Neuts % (Manual) 95.0 H (43.0-75.0) Lymphocytes % (Manual) 4.0 L (20.5-60.0) % Monocytes % (Manual) 1.0 L (1.7-12.0) % Eosinophils % (Manual) 0.0 L (0.9-7.0) % Basophils % (Manual) 0.0 L (0.2-2.0) % Neutrophils # (Manual) 9.21 H (1.4-6.5) 10^3/uL Lymphocytes # (Manual) 0.38 L (1.20-3.80) 10^3/uL Monocytes # (Manual) 0.09 L (0.30-0.80) 10^3/uL Eosinophils # (Manual) 0.00 (0.00-0.70) 10^3/uL Basophils # (Manual) 0.00 (0.00-0.10) 10^3/uL Sodium 142 (136-145) mmol/L Potassium 3.9 (3.5-5.1) mmol/L Chloride 102 (98-107) mmol/L Carbon Dioxide 23.1 (21.0-32.0) mmol/L Anion Gap 20.8 BUN 18.0 (7.0-18.0) mg/dL Creatinine 0.77 (0.70-1.30) mg/dL Est GFR ( Amer) >60 (>=60 mL/min/1.73m^2) Est GFR (Non-Af Amer) >60 (>=60 mL/min/1.73m^2) BUN/Creatinine Ratio 23.4 Glucose 100 (74-106) mg/dL Calcium 9.5 (8.5-10.1) mg/dL Troponin I High Sens 4.1 (4.0-76.1) pg/mL Imaging Data Chest x-ray: Radiologist's impression: ITS Impressions Chest X-Ray 10/24/24 13:54 IMPRESSION: NEGATIVE CHEST. Impression dictated by: Randall Bowman Jr., D.O. 10/24/2024 2:24 PM Dictation Location: [place] [address] Electronically authenticated by: [id number] Y Date: 10/24/2024 14:24 ECG Data Attestation: I personally reviewed and interpreted this ECG as follows: (EKG on my interpretation shows sinus rhythm with rate of 98 and no acute change) Discharge Plan Discharge Chief Complaint: Chest Pain Clinical Impression: Chest pain, Cocaine abuse Patient Disposition: Home, Self-Care Time of Disposition Decision: 14:49 Condition: Good Mode of Transportation: Private Vehicle Print Language: Kiswahili Instructions: Chest Pain (ED), Cocaine Use Disorder (ED) Referrals: Physician,Non-Staff, MD [Primary Care Provider] - 1 week
[2024-10-24 14:23] LABS: Hematocrit 43.0 % (42.0-54.0); Hemoglobin 14.9 g/dL (14.0-18.0); Mean Corpuscular HGB Conc 34.7 g/dL (29.9-35.2); Mean Corpuscular Hemoglobin 33.9 pg (25.9-34.0); Mean Corpuscular Volume 97.7 fL (80.0-94.0); Platelet Count 186 10^3/uL (150-450); Red Blood Count 4.40 10^6/uL (4.70-6.10); White Blood Count 9.7 10^3/uL (4.0-11.0)
[2024-10-24 14:39] LABS: Anion Gap 20.8; Blood Urea Nitrogen 18.0 mg/dL (7.0-18.0); Calcium 9.5 mg/dL (8.5-10.1); Carbon Dioxide 23.1 mmol/L (21.0-32.0); Chloride 102 mmol/L (98-107); Estimated GFR (African America >60 (>=60 mL/min/1.73m^2); Estimated GFR (Non-African Ame >60 (>=60 mL/min/1.73m^2); Glucose 100 mg/dL (74-106); Potassium 3.9 mmol/L (3.5-5.1); Sodium 142 mmol/L (136-145)
[2024-10-24 14:46] LABS: Basophils Abs Manual 0.00 10^3/uL (0.00-0.10); Basophils Percent Manual 0.0 % (0.2-2.0); Eosinophils Absolute Manual 0.00 10^3/uL (0.00-0.70); Eosinophils Percent Manual 0.0 % (0.9-7.0); Lymphocytes Absolute Manual 0.38 10^3/uL (1.20-3.80); Lymphocytes Percent Manual 4.0 % (20.5-60.0); Monocytes Absolute Manual 0.09 10^3/uL (0.30-0.80); Monocytes Percent Manual 1.0 % (1.7-12.0); Segmented Neut Absolute Manual 9.21 10^3/uL (1.4-6.5); Segmented Neutrophils % Manual 95.0 (43.0-75.0)
== END 2024-10-24 15:02 | disposition home or self-care (01) ==
PROVIDERS: Emergency Provider Emergency Medicine
DX: R07.9 Chest pain, unspecified (principal); F14.10 Cocaine abuse, uncomplicated
CPT/HCPCS: 36415; 71045; 80048; 84484; 85007; 85027; 93005; 99285

== ENCOUNTER 2025-02-16 21:07 | Emergency (ER) | payer OTHER, SELFPAY ==
--- OUTSIDE RECORDS SUMMARY | 2024-12-06 10:45 | XMS_ITS ---
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 Encounters Encounter Location Date Provider Diagnosis [address] [id number] 12/06/2024 Laurita Richards Plan Of Treatment No Information Progress Notes * JOHNATHON AbrahamDOB: 4 (19 yo M)Acc No.[id number]:12/06/2024 Progress Notes Patient: Abraham Burton :?Laurita Richards APRN, FNP-CDOB:2005???Age: 19 Y???Sex:MaleDate:12/06/2024Phone:[phone]:[address], [address], [place], [id number] Subjective: * Chief Complaints: * N P wellness Billing Information: * Procedure Codes: * Electronic signature of NOEMÍ Espinosa on 02/16/2025 at 10:10 PM EST Sign off status: Pending * Provider: Cailin Richards APRN, FNP-C Date: 0 12/06/2024 Generated for Printing/Faxing/eTransmitting on:?02/16/2025 10:10 PM EST
--- OUTSIDE RECORDS SUMMARY | 2025-02-15 19:50 | XMS_ITS | Continuity of Care Document ---
Author Organization [facility] Address [address] [place] [address] Phone Care Team Providers Care Drencher Name Role Phone Devon Kayleigh Gonzales DO Primary Care Provider [phone] Kayleigh Osorio DO Attending Provider [phone] Care Teams Patient Care Team Team Status: Active Member Role/Relationship Status Dates Kayleigh Osorio DO Primary Care Provider Active Visit Care Team Team Status: Inactive Member Role/Relationship Status Dates Kayleigh Osorio DO Primary Care Provider Active Start: December 28, 2024 End: December 28, 2024Yoly Martins ProviderActiveStart: December 28, 2024 End: December 28, 2024 Visit Care Team Team Status: Inactive Member Role/Relationship Status Dates Kayleigh Osorio DO Primary Care Provider Active Start: January 14, 2025 End: January 14, 2025Yoly Martins ProviderActiveStart: January 14, 2025 End: January 14, 2025 Visit Care Team Team Status: Inactive Member Role/Relationship Status Dates Kayleigh Osorio DO Primary Care Provider Active Start: January 25, 2025 End: January 25, 2025Yoly Martins ProviderActiveStart: January 25, 2025 End: January 25, 2025 Visit Care Team Team Status: Inactive Member Role/Relationship Status Dates Kayleigh Osorio DO Primary Care Provider Active Start: January 25, 2025 End: January 25, 2025Yoly Martins ProviderActiveStart: January 25, 2025 End: January 25, 2025 Visit Care Team Team Status: Inactive Member Role/Relationship Status Dates Kayleigh Osorio DO Primary Care Provider Active Start: February 15, 2025 End: February 15, 2025SaYoly Mcpherson ProviderActiveStart: February 15, 2025 End: February 15, 2025 Chief Complaint and Reason for Visit Chief Complaint Admit Date Establish December 28, 2024 9:40am f10.939 r11.2 r74.01 January 14, 2025 3:29pm 1 month f/u January 25, 2025 9 :49am Left thumb pain and swelling s/p fall Oc tober 2024 11:14am R74.01 February 15, 2025 10:24am Reason for Visit Admit Date Alcohol withdrawal syndrome December 282024 9:40am Transaminitis December 28, 2024 9:40am Alcohol use disorder January 25, 2025 9:49am Pain of left thumb January 25, 2025 9 :49am Transaminitis January 25, 2025 9 :49am Allergies, Adverse Reactions, Alerts Allergen Type Severity Reaction Last Updated Verified Status No Known Allergies Allergy Unknown January 25, 2025 8:53amYesActive Social History Smoking Status Status Start Date End Date Date of Observa tion Current some day smoker December 28, 2024 9:46am Observation Status Observation Response Date of Response Legal Sex Male (finding) Sex Assigned At [facility] 2005 Family History Relationship Condition Age at Onset Recorded Date/T kt grandparent Heart disease Unknown fatherHeart failureUnknown Problems Active Problems Problem Diagnosis/Recorded Date Onset Date Stat us Pain of left thumb January 25, 2025 9:34am Unknown Active Transaminitis November 11, 2024 3:02am Unknown Ac tive Alcohol withdrawal syndrome November 21, 2024 10:15pm Unknown Active Alcohol use disorder December 28, 2024 9:33am Unkno wn Active Nausea and vomiting November 21, 2024 10:15pm Unknown Active Inactive/Resolved Problems Problem Diagnosis/Recorded Date Onset Date Stat us Alcohol withdrawal syndrome without complication November 11, 2024 3:02am Unknown Resolved Medications Medication Status Dose Units Route Directions Qty Days Refills S tart Date Stop Date End Date Reason(s) Instructions Adherence Chlordiazepoxide Hcl 25 mg capsule Discontinued 25 MG PO As Directed 5 3 0 November 11, 2024 11:00pm December 28, 2024 8:47amAlcohol withdrawal syndrome without complication Alcohol use, unspecified with withdrawal, uncomplicated8/15 dose at 3p and 10p, 8/16 dose at 10a and 10p, 8/17 dose at 10Lorazepam 2 mg lmapqmRcmjhajtnito9WAUP Every 2 hours as needed for alcohol ookgtbkevr3091Axxccwprm 29th, 2025 11:00pm January 25, 2025 9:37amAlcohol withdrawal syndrome Alcohol use, unspecified with withdrawal, unspecifiedThiamine Hcl (Vitamin B1) 100 mg gvubylwVizegkfhjoqh882TOEYMoelp997Rkmbpeehg 2024 11:00pmOctober 2024 9:37am Procedures Procedure Date Performed Status XR hand LT min 3V* January 25, 2025 10:14am co mpleted US liver February 15, 2025 10:32am comp leted Relevant Diagnostic Tests and/or Laboratory Data Laboratory Results Test Collection Date/Time Result Date/Time Result Interpretation Reference Range Result Comment Performing Site Corrected White Blood Count January 14, 2025 2:33pm January 14, 2025 3:10pm 5.0 10*3/uL 4.1-10.5[facility] [id number] [address] [facility] [address]Xupihqeafzt WBC CountOct2024 2:33pmOctb[facility] 2024 3:10pm5.0 10*3/uL4.1-10.5F[facility] [id number] [address] [facility] [address]Kli Blood CountOct2024 2:33pmOctbaptist health [facility] 2024 3:10pm4.26 10*6/uL3.90-5.60[facility] [id number] [address] [facility] [address]OnhazmbetxBghjzpq 2024 2:33pmOctbaptist health [facility] 2024 3:10pm 14.5 g/dL13.0-17.0[facility] [id number] [address] [facility] [address]PandqbtgfwFnbbkww 2024 2:33pmOctober 2024 3:10pm 42.0 %38.8-50.0[facility] [id number] [address] [facility] [address]98[address]Xxkd Corpuscular VolumeOctober 2024 2:33pmOctober 2024 3:10pm98.4 fL83.5-101[facility] [id number] [address] [facility] [address]Vynb Corpuscular HemoglobinOctober 2024 2:33pmOctober 2024 3:10pm33.9 pg27.5-35.2F[facility] [id number] [address] [facility] 17[address]Opus Corpuscular Hemoglobin ConcentOctober 2024 2:33pm January 14, 2025 3:10pm34.4 g/dL32.5-35.6F[facility] [id number] [address] [facility] [address]Gje Cell Distribution WidthOct2024 2:33pmOct2024 3:10pm14.8 %12.0-14.8[facility] [id number] [address] [facility] [address]Plifacha CountOctober 2024 2:33pmOctober 2024 3:42wq359 10*3/gG887-166ZomgztmfeTrumbull Regional [facility] [id number] [address] [facility] [address]Jxws Platelet VolumeOctober 2024 2:33pmOctober 2024 3:10pm7.1 fL6.6-10.1F[facility] [id number] [address] [facility] [address]Mgkvyxkfbwv (%) (Auto)January 14, 2025 2:33pmOctober 2024 3:10pm61.6 %.[facility] [id number] [address] [facility] [address]Zerlteshgqh (%) (Auto)January 14, 2025 2:33pmOctober 2024 3:10pm30.2 %.[facility] [id number] [address] [facility] [address]Yvgiotsat (%) (Auto)January 14, 2025 2:33pmOctober 2024 3:10pm5.3 %.[facility] [id number] [address] [facility] [address]Ooajnqnvnxj (%) (Auto)January 14, 2025 2:33pmOctober 2024 3:10pm0.8 %.[facility] [id number] [address] [facility] [address]Lqhuhdwit (%) (Auto)January 14, 2025 2:33pmOctober 2024 3:10pm2.1 %.[facility] [id number] [address] [facility] 159[address]Lxnjxdpzd RBC Relative Count (auto)January 14, 2025 2:33pm January 14, 2025 3:10pm0.1 /100{WBC}0-0.5F[facility] [id number] [address] [facility] [address]Xyarbfptrfk # (Auto)January 14, 2025 2:33pmOctober 2024 3:10pm3.1 10*3/uL1.8-7.7F[facility] [id number] [address] [facility] [address]689Hwbcvjveplm # (Auto)January 14, 2025 2:33pmOctober 2024 3:10pm1.5 10*3/uL1.00-4.8[facility] [id number] [address] [facility] [address]Ocrmdelbn # (Auto)January 14, 2025 2:33pmOctober 2024 3:10pm0.3 10*3/uL0.0-0.8[facility] [id number] [address] [facility] [address]Qiftqotdazo # (Auto)January 14, 2025 2:33pmOctober 2024 3:10pm0.0 10*3/uL0.0-0.45[facility] [id number] [address] [place] [address]49[address]Basophils # (Auto)January 14, 2025 2:33pmOctober 2024 3:10pm0.1 10*3/uL0.0-0.2F[facility] [id number] [address] [place] [address]Glucose LevelOctober 2024 2:33pmOctober 2024 4:11pm 74 mg/eC33-559JldzuyzkvTrumbull Regional Medical Center [facility]tr [id number] [address] [place] [address]Blood Urea NitrogenOctober 2024 2:33pmOctober 2024 4:11pm8 mg/dL7-25[facility] [id number] [address] [place] [address]CreatinineOctober 2024 2:33pmOctober 2024 4:11pm 0.79 mg/dL0.70-1.30[facility] [id number] [address] [place] [address]Estimated GFR (CKD-EPI)January 14, 2025 2:33pmOctober 2024 4:11pm> 60.0 mL/MinTrumbull Regional Medical Center Ctr [id number] [address] [place] [address]Sodium LevelOctober 2024 2:33pmOctober 2024 4:11pm 141 mmol/J513-640SfplnoddjTrumbull Regional Medical Center [facility]tr [id number] [address] [place] [address]Potassium LevelOctober 2024 2:33pmOctober 2024 4:11pm3.7 mmol/L3.5-5.1F[facility] [id number] [address] [place] [address]Chloride LevelOctober 2024 2:33pmOctober 2024 4:58ft790 mmol/F85-962SunxjeogfTrumbull Regional Medical Center [facility]tr [id number] [address] [place] [address]Carbon Dioxide LevelOctober 2024 2:33pmOctober 2024 4:11pm30.3 mmol/L21.0-31.0[facility] [id number] [address] [facility] [address]Tsdxb GapOctober 2024 2:33pmOctober 2024 4:11pm12.4 mEq/L6.0-15.0[facility] [id number] [address] [facility] [address]Raakpqi LevelOctober 2024 2:33pmOctober 2024 4:11pm 8.8 mg/dL8.6-10.3F[facility] [id number] [address] [facility] [address]Viclt ProteinOctober 2024 2:33pmOctober 2024 4:11pm 7.2 g/dL6.4-8.9[facility] [id number] [address] [facility] [address]XgsvtkuJtqsnti 2024 2:33pmOctober 2024 4:11pm4.9 g/dL3.5-5.7F[facility] [id number] [address] [facility] [address]TcvbnuarWqpygdl 2024 2:33pmOctober 2024 4:11pm2.3 g/dLTrumbull Regional Medical Center [facility] [id number] [address] [facility] [address]Phnbxme/Globulin RatioOctober 2024 2:33pmOctober 2024 4:11pm2.1F[facility] [id number] [address] [facility] [address]Ahtpp BilirubinOctober 2024 2:33pmOctober 2024 4:11pm0.9 mg/dL0.3-1.0[facility] [id number] [address] [facility] [address]Pwznzo BilirubinOctober 2024 2:33pmOctober 2024 4:11pm0.20 mg/dLAbove high normal0.03-0.18F[facility] [id number] [address] [facility] [address]Wjenwtfu BilirubinOctober 2024 2:33pmOctober 2024 4:11pm0.7 mg/dLTrumbull Regional Medical Center [facility] [id number] [address] [facility] 19408Pkuhaxtbq Amino Transf (AST/SGOT)January 14, 2025 2:33pm January 14, 2025 4:11pm83 U/LAbove high iyepkf43-09SfqgewqyuTrumbull Regional Medical Center [facility]tr [id number] [address] [facility] 57994Xerryqi Aminotransferase (ALT/SGPT)January 14, 2025 2:33pm January 14, 2025 4:11pm64 U/LAbove high normal7-52[facility] [id number] [address] [facility] [address]Ocvveyxh PhosphataseOctober 2024 2:33pmOctober 2024 4:11pm80 U/E94-157KrzsydvbhTrumbull Regional Medical Center [facility] [id number] [address] [facility] [address]Pximykfgdqd LevelOctober 2024 2:33pmOctober 2024 4:01wa763 mg/zX343-768Blbq less than 200 mg/dl low riskChol 201-239 mg/dl borderline riskChol 240 mg/dl and greater high riskTrumbull Regional Medical Center [facility]tr [id number] [address] [facility] [address]RGS CholesterolOctober 2024 2:33pmOctober 2024 4:11pm87 mg/oK38-77FCL CHOL ATP-III CLASSIFICATION Cardiovascular RiskHDL > or equal to 60 mg/dL LOWHDL < 40 mg/dL [facility] [id number] [address] [facility] [address]Essazwdsnxvlb LevelOctober 2024 2:33pmOctober 2024 4:87kw398 mg/dL0-149TRIG ATP III CLASSIFICATIONTRIG less than 150 mg/dL NormalTRIG 150-199 mg/dL Borderline highTRIG 200-500 mg/dL High TRIG greater than 500 mg/dL Very highStandard traceable to the Center for Disease Conrtrol and Prevention (CDC) test method.[facility] [id number] [address] [facility] [address]ABI Cholesterol, CalculatedOctober 2024 2:33pmOctober 2024 4:11pm82 mg/dL0-100LDL ATP III CLASSIFICATIONLDL less than 100 mg/dL OptimalLDL 100-129 mg/dL Near or above ipufstrYHB366-358 mg/dL Borderline highLDL 160-189 mg/dL HighLDL greater than 189 mg/dL Very highTrumbull Regional Medical Center [facility]tr [id number] [address] [facility] [address]26[address]VTNW CholesterolOctober 2024 2:33pmOctober 2024 4:11pm28 mg/dLTrumbull Regional Medical Center [facility] [id number] [address] [facility] [address]Aybdkekwtkc/HDL RatioOctober 2024 2:33pmOctober 2024 4:11pm2.3<5.0[facility] [id number] [address] [facility] [address]Oworsuy B12 LevelOctober 2024 2:33pmOctober 2024 4:67gi548 pg/cL331-745SgndpbkymTrumbull Regional [facility] Center [facility] [id number] [address] [facility] [address]GxoefrUhfsyve 2024 2:33pmOctober 2024 4:36pm11.5 ng/mL>5.9Folate reference range: >5.9 ng/mlThe WHO technical consultation on folate and vitamin w69vzmmjapsxjgt has determined that folate concentrations lessthan 4 ng/ml are considered deficient.[facility] [id number] [address] [facility] [address]Hyhisra Stimulating Hormone 3rd GenOctober 2024 2:33pm January 14, 2025 4:25pm0.98 u[iU]/mL0.45-5.33[facility] [id number] [address] [facility] [address]Mbnsnqel Creatinine Clearance (ChemOctober 2024 2:33pm January 14, 2025 4:11pmN/[facility] [id number] [address] [facility] [address]Ozqrwwz B1 LevelOctober 2024 2:33pmOctober 2024 2:56wa741.5 nmol/L66.5-200.0This test was developed and its performance characteristicsdetermined by [employer]. It has not been cleared orapproved by the Food and Drug Administration.Performed at: [address] [id number] Director: Lenore Gomez MD, Phone: [phone] Diagnostic Imaging Reports Author Randall Bowman [facility] HospitalReport Date/TimeFebruary 15, 2025 11:54am [facility] [place] [address] Ultrasound Report Signed Patient: Abraham Diego MR#: [id number] : 2005 Acct:[id number] Age/Sex: 19 / M ADM Date: 5 Loc: Room: Type: [facility] Attending Dr: Kayleigh Osorio DO Ordering Provider: Kayleigh Osorio DO Date of Service: 02/15/25 US/US liver: Elevated LFTs, history of alcohol use Copies to: Kayleigh Osorio DO~ LIMITED ABDOMINAL ULTRASOUND: CLINICAL HISTORY: Elevated LFTs. COMPARISON: None TECHNIQUE: Grayscale and color Doppler images of the right upper quadrant organswere obtained. FINDINGS: Pancreas: Visualized portions appear unremarkable. Liver: Fatty infiltration. Gallbladder: Unremarkable. CBD: 2.9 mm RT KIDNEY: No Hydronephrosis US/US liver IMPRESSION: FATTY INFILTRATION OF THE LIVER.. Impression dictated by: Randall Bowman Jr., D.OFroylan 02/15/2025 11:54 AM Dictation Location: [facility]ETValidus Tech: Suyapa Alfa Transcribed By: PWS 02/15/25 1154 Dictated By: Randall Bowman Jr, DO 02/15/25 1154 Signed By: <Electronically signed by Randall Bowman Jr, DO in OV> 02/15/25 1154 Vital Signs Vital Reading Result Reference Range Collection Date/Time Height 72 [in_i] December 28, 2024 8:30nhSlufcy46.86 kgSeptember 2024 8:45amHeart Rate70 /grl39-799Thryqqcnm 30th, 2025 8:45amRespiratory rate18 /gvn10-37Gldeybjbn 30th, 2025 8:45amOxygen saturation by Pulse zludebbj34 %95-100Se2024 8:45amBP Uvdarixv752 mm[Hg]100-140Sept2024 8:45amBP Ktrzmjqdn77 mm[Hg]60-100Sept2024 8:45amBMI (Body Mass Index)19.3 kg/x4Oxejxudog2024 8:45xaPrkjub41 [in_i]January 25, 2025 8:50uqRiihzh43.22 kgOctbaptist health [facility] 2024 8:51amHeart Rate88 /xhe99-386Yysatra 2024 8:51amOxygen saturation by Pulse %95-100Octb[facility]ist health [facility] 2024 8:51amBP Vpbgtbts647 mm[Hg]100-140Octbaptist health [facility] 2024 8:51amBP Rjjoknhdm65 mm[Hg]60-100[facility] 2024 8:51amBMI (Body Mass Index)19.8 kg/b5Nxkiuug 2024 8:51am Advance Directives Advance Directive Response Recorded Date/ Time Advance Directives No November 10, 2024 8:53pm Insurance Providers Guarantor Abraham Diego Address [address] [facility] [phone] Info.Home Phone: Coverage Status Update:2025 Payer Group Member ID Coverage Type Subscriber Relationship to Subscriber Effective Date Expiration Date [employer] Medicaid Id: [id number] [employer] [place] Id: [id number] [address] [facility] [address] Home Phone: self Encounters Encounter Location(s) Arrival/Admit Date Discharge/Departure Date Discharge/Departure Disposition Provider(s) Departed Physician/ Provider Office Visit -[facility] December 28, 2024 9:40am December 28, 2024 10:19am Discharged to home care or self care (routine discharge) Kayleigh Osorio DO Departed Clinical -Lab [facility] January 14, 2025 3:29pm January 14, 2025 3:30pm Discharged to home care or self care (routine discharge) Kayleigh Osorio DO Departed Physician/ Provider Office Visit -[facility] January 25, 2025 9:49am January 25, 2025 10:38am Discharged to home care or self care (routine discharge) Kayleigh Osorio DO Departed Clinical -[facility] [place] January 25, 2025 11:14am January 25, 2025 11:15am Discharged to home care or self care (routine discharge) Kayleigh Osorio DO Departed Clinical -Ultrasound [facility] February 15, 2025 10:24am February 15, 2025 10:25am Discharged to home care or self care (routine discharge) Kayleigh Osorio DO Recent Diagnosis Onset Date Admit Date Alcohol withdrawal syndrome Unknown Nov 9:40am Transaminitis Unknown December 28, 2024 9:40am Alcohol use disorder Unknown December 9:49am Pain of left thumb Unknown January 25, 2025 9:49am Transaminitis Unknown January 25 9:49am Assessments Diagnosis Onset Date Resolution Status Admit Date Alcohol withdrawal syndrome acuteSept2024 9:40amTransaminitisacuteSeptember 2024 9:40am Alcohol use disorderacuteOctober 2024 9:49amPain of left thumbacuteOctober 2024 9:49amTransaminitisacuteOctober 2024 9:49am Plan of Treatment Author Kayleigh Osorio [facility] HospitalAuthoredSept2024 11:04amPatient with alcohol use disorder currently in active withdrawal. He has been sober for 2 days. He recently moved in with his uncle who has accompanied him today. His uncle is very supportive. Patient has never had seizures but is having withdrawal symptoms. He has tremors on examination. Reports insomnia, some nausea, sweating. No delirium or seizure history. Will treat with as needed benzodiazepine for neck several days. Long discussion regarding risk versus benefit of benzodiazepine use and possible side effects. His uncle plans on administering the medication only as needed for withdrawal symptoms. I will also send in thiamine supplement. Blood work has been ordered. Patient is agreeable to following with behavioral health for possible MAT therapy and counseling. He plans on going to some AA meetings in future. Close follow-up in 3 to 4 weeks. Counseled on return precautions. If any worsening he is to go directly to the emergency room. Patient had some elevated transaminase levels at last hospitalization but did not get repeat blood work. Hepatitis workup was negative. Will repeat liver function studies and follow-up. Author Kayleigh Osorio [facility] HospitalAuthoredOctober 2024 11:47amPatient with thumb pain after recent injury. Unknown mechanism of fall. He is having some pain, decreased range of motion, and swelling at the IP joint of his left thumb. No ecchymosis, thumb is well-perfused. Will get x-rays Last visit patient was in acute alcohol withdrawal with tremors, decreased sleep, nausea, and sweating. Patient wanted to go through withdrawal in the outpatient setting. I had sent in benzodiazepines to be used as needed for withdrawal symptoms which were to be controlled and dispensed by his uncle and kept locked away from patient. Patient tells me the benzodiazepines did not help and he started drinking again. His uncle is present today and states that patient went through his things and stole the lorazepam and mixed them with alcohol. Patient was evaluated in the emergency room and was discharged home. Patient had a fall with an abrasion to his nose and thumb. States he has broken his nose before and did not seek medical attention. States he had some initial ecchymosis but this has since resolved. No pain on examination but he does have abrasions to his nose. Denies any difficulty breathing through his nose. Patient has since established with behavioral health and is interested in an inpatient detox program but has some reservations. Discussed that I believe this would be appropriate for him as I do not feel it is safe to try outpatient detox again. Discussed his concerns in office. Patient feels he is ready and interested in quitting. His uncle is very supportive. We talked about the long-term effects of alcohol use. Patient is considering going into inpatient detox next week-states he has the numbers and resources of places nearby. He plans on going to alcohol Anonymous at his family's [facility]. Continue to follow-up regularly with behavioral health and call with any concerns. Elevated liver transaminase levels and direct bilirubin. This is likely secondary to his alcohol use which as discussed above. Risks and benefits were discussed. Counseled on the importance of alcohol cessation to prevent further liver damage. Prior hepatitis labs have been normal. Liver ultrasound has been ordered and he has an upcoming appointment with gastroenterology for an evaluation. Future Tests Future scheduled test information is unavailable Pending Tests Pending diagnostic test information is unavailable Future Visits Future appointment information is unavailable Future Procedures Future procedure information is unavailable Future Medications Future medication information is unavailable Patient Instructions Patient instructions are unavailable
[2025-02-16] VITALS (19 sets, daily range): BP systolic 134–164; BP diastolic 79–95; PULSE 63–97; TEMP 37; O2SAT 96–100; BMI 19.7
--- NOTE | 2025-02-16 21:17 | ECG_ITS ---
[facility] Test Date: 2025-02-16 Pat Name: JOEL LOPEZ Department: Room: - Gender: Male Stock Receiver: : 2005 Requested By: [id number] Order Number: [id number] Reading MD: YUDI PAINTER M.D. Measurements Intervals [place] Rate: 80 P: 67 OR: 148 QRS: 99 QRSD: 98 T: 47 QT: 378 QTc: 414 Interpretive Statements 1100 Sinus rhythm 7102 Moderate right axis deviation 9110 normal ECG Compared to ECG 10/24/2024 13:47:51 No significant changes Electronically Signed On 02-17-2025 6:10:58 EST by YUDI PAINTER M.D.
--- NOTE | 2025-02-16 21:37 | ED_ITS ---
HPI - Chest Pain General Chief Complaint: Chest Pain Stated Complaint: CHEST PAIN Time Seen by Provider: 02/16/25 21:27 Source: patient Mode of arrival: walk-in Limitations: no limitations History of Present Illness HPI narrative: This 19-year-old male with a history of alcohol dependence for the past several years is brought to the emergency department by his uncle for evaluation of chest pain, palpitations and alcohol withdrawal. The patient last drank alcohol about 20 hours ago. He typically drinks beer and liquor throughout the day. He has been living with his uncle in [place] for the past 2 months. His uncle has got him into counseling. His counselor is trying to convince him to go into detox but he is afraid of withdrawal. He denies any drug use. He is tremulous upon arrival. He states he has been vomiting all day and the last time he vomited there was blood in his vomitus. He complains of anxiety, palpitations and nausea/vomiting. Related Data Home Medications ?Medication ?Instructions ?Recorded ?Confirmed No Known Home Medications 02/16/2501/29 Allergies Allergy/AdvReac Type Severity Reaction Status Date / Time No Known Drug Allergies Allergy Verified 02/16/25 21:13 Review of Systems ROS Status of ROS 10 or more systems reviewed and unremark able except as noted in history and below PFSH PFSH Social History Little interest or pleasure in doing things: not at all Feeling down, depressed, or hopeless: not at all Exam Narrative Exam Narrative: Vital signs and Nursing Notes reviewed: Patient is afebrile with normal pulse, blood pressure is elevated at 164/95, he is not hypoxic with pulse ox of 99% on room air General; thin, ill-appearing male, no active vomiting, he is shaking HEENT: Normocephalic atraumatic, mucous membranes are moist and pink, eyes are clear, normal conjunctiva, vision is grossly intact, posterior pharynx is normal in appearance. Positive tongue fasciculations Neck: Supple, no meningeal signs, no anterior or posterior cervical lymphadenopathy Chest: Lungs are clear to auscultation with good air entry, there is no wheezing rhonchi or rales appreciated no accessory muscle use, patient is speaking in complete sentences-no chest wall tenderness to palpation CVS: Regular rate and rhythm S1-S2, no murmurs rubs or gallops, pulses are brisk and equal bilaterally ABD: Soft, nondistended, nontender, no rebound guarding or rigidity, bowel sounds are normal, no pulsatile masses appreciated Extremities: Moving all extremities, no lower extremity tenderness or swelling noted, negative Homans' sign, pulses are brisk and equal bilaterally Skin: Normal in appearance without rash,pallor, petechiae or purpura Neuro: No focal deficits, tremulous Constitutional Vital Signs, click to edit/add: Last Vital Signs Temp 99.3 F 02/17/25 01:31 Pulse 73 02/17/25 01:31 Resp 21 H 02/17/25 01:31 BP 132/86 02/17/25 01:31 Pulse Ox 98 02/17/25 01:31 O2 Del Method Room Air 02/16/25 21:13 Course Vital Signs Vital signs: Vital Signs Blood Pressure 164/95 H 02/16/25 21:12 Pulse Oximetry 99 02/16/25 21:12 Temperature 99.3 F 02/17/25 01:31 Pulse Rate 73 02/17/25 01:31 Respiratory Rate 21 H 02/17/25 01:31 Blood Pressure 132/86 02/17/25 01:31 Pulse Oximetry 98 02/17/25 01:31 Oxygen Delivery Method Room Air 02/16/25 21:13 MDM - Chest Pain MDM Narrative Medical decision making narrative: This 19-year-old male with history of alcohol dependence for the past several years who has recently been staying with his uncle in [place] who is helping to try to get him treatment for his alcohol dependence is brought to the emergency department by his uncle for evaluation of nausea, vomiting, chest pain, and episode of hematemesis and tremulousness. The patient has not been drinking alcohol for the past 20 hours. He has recently been seen by a counselor who has encouraged him to get into alcohol treatment/detox. He has been evaluated by [facility] detox center who has agreed to accept him when the patient was ready to seek treatment. Upon arrival he was tremulous and severely anxious with tongue fasciculations. Vital signs have been stable. EKG done upon arrival to sinus rhythm with a right axis deviation. An IV was placed and he was medicated with IV fluids, Zofran, Pepcid and Valium. CIWA protocol was instituted. His symptoms improved with these medications. Routine labs are reviewed. He has a normal white count and stable hemoglobin. Comprehensive metabolic profile is normal with the exception of an elevated AST, ALT and bilirubin consistent with alcohol use. Alcohol was negative. Troponin is negative. U tox was ordered due to his history of cocaine use but this was not provided by the patient. Since the patient has already been evaluated by [facility] detox center and accepted. We did reach out to them and the patient is accepted for transfer to their facility. The patient is agreeable to going at this time and his uncle is agreeable to taking him by private vehicle. Prior to being transferred he was given additional 5 mg of IV Valium as his tongue fasciculations and tremulousness seem to increase. He is otherwise stable for discharge/transfer to the detox facility. Lab Data Attestation: I reviewed the patient's lab results. Labs: Lab Results 02/16/25 Range/Units 21:30 WBC 9.2 (4.0-11.0) 10^3/uL RBC 4.21 L (4.70-6.10) 10^6/uL Hgb 14.4 (14.0-18.0) g/dL Hct 41.2 L (42.0-54.0) % MCV 97.9 H (80.0-94.0) fL MCH 34.2 H (25.9-34.0) pg MCHC 35.0 (29.9-35.2) g/dL RDW 12.2 (11.0-15.0) % Plt Count 181 (150-450) 10^3/uL MPV 9.2 L (9.5-13.5) fL Neut % (Auto) 83.5 H (43.0-75.0) % Lymph % (Auto) 9.3 L (20.5-60.0) % Henderson % (Auto) 5.5 (1.7-12.0) % Eos % (Auto) 0.4 L (0.9-7.0) % Baso % (Auto) 1.1 (0.2-2.0) % Neut # (Auto) 7.7 H (1.4-6.5) 10^3/uL Lymph # (Auto) 0.9 L (1.2-3.8) 10^3/uL Henderson # (Auto) 0.5 (0.3-0.8) 10^3/uL Eos # (Auto) 0.0 (0.0-0.7) 10^3/uL Baso # (Auto) 0.1 (0.0-0.1) 10^3/uL Abs Immat Gran (auto) 0.02 (0.00-0.03) 10^3/uL Imm/Tot Granulo (auto) 0.2 (0.0-0.5) % PT 11.4 (9.0-11.6) sec INR 1.08 Sodium 139 (136-145) mmol/L Potassium 3.8 (3.5-5.1) mmol/L Chloride 99 (98-107) mmol/L Carbon Dioxide 27.5 (21.0-32.0) mmol/L Anion Gap 16.3 BUN 14.0 (7.0-18.0) mg/dL Creatinine 0.82 (0.70-1.30) mg/dL Est GFR ( Amer) >60 (>=60 mL/min/1.73m^2) Est GFR (Non-Af Amer) >60 (>=60 mL/min/1.73m^2) BUN/Creatinine Ratio 17.1 Glucose 102 (74-106) mg/dL Calcium 9.3 (8.5-10.1) mg/dL Total Bilirubin 1.4 H (0.2-1.0) mg/dL AST 141 H (15-37) U/L ALT 94 H (16-63) U/L Alkaline Phosphatase 87 (46-116) U/L Troponin I High Sens <4.0 L (4.0-76.1) pg/mL Total Protein 7.9 (6.4-8.2) g/dL Albumin 4.6 (3.4-5.0) g/dL Globulin 3.3 g/dL Albumin/Globulin Ratio 1.4 Ethanol Quant <3 mg/dL ECG Data Attestation: I personally reviewed and interpreted this ECG as follows: (Sinus rhythm at 80 bpm, axis deviation, normal intervals, no acute ST segment elevation or T wave inversion) Heart Score History: Slightly/Non-Suspicious ECG: Normal Age: <45 years Risk Factors: 1 or 2 Risk Factors Troponin: <Normal Limit Total Heart Score Recommendations & Risks:: 1 Critical Care Time Critical Care Time Total Critical Care Time: 30 Attestation: Due to this patient's presentation with symptoms of alcohol withdrawal and chest pain and the high probability of sudden clinically significant deterioration in his condition he required the highest level of my preparedness to intervene urgently. I provided critical care time including documentation time medication orders and management reevaluation vital sign assessment ordering and reviewing of lab test and consultation with accepting clinicians. Aggregate critical care time is 35 minutes including only time during which I was engaged in work directly into his care Discharge Plan Discharge Chief Complaint: Chest Pain Clinical Impression: Atypical chest pain, Alcohol dependence, Alcohol abuse with withdrawal Patient Disposition: General Acute Hospital Time of Disposition Decision: 01:35 Mode of Transportation: Private Vehicle
[2025-02-16] MEDS: PANTOPRAZOLE SODIUM 40 MG VIAL IV (21:47)
[2025-02-16] MEDS: DIAZEPAM 10 MG/2 ML SYRINGE 5 MG IV (21:47)
[2025-02-16] MEDS: FAMOTIDINE/PF 20 MG/2 ML VIAL IV (21:48)
[2025-02-16 21:55] LABS: Hematocrit 41.2 % (42.0-54.0); Hemoglobin 14.4 g/dL (14.0-18.0); Immature Granulocytes Abs Auto 0.02 10^3/uL (0.00-0.03); Immature Granulocytes Pct Auto 0.2 % (0.0-0.5); Lymphocytes Absolute Auto 0.9 10^3/uL (1.2-3.8); Mean Corpuscular HGB Conc 35.0 g/dL (29.9-35.2); Mean Corpuscular Hemoglobin 34.2 pg (25.9-34.0); Mean Corpuscular Volume 97.9 fL (80.0-94.0); Platelet Count 181 10^3/uL (150-450); Red Blood Count 4.21 10^6/uL (4.70-6.10); White Blood Count 9.2 10^3/uL (4.0-11.0)
--- OUTSIDE RECORDS SUMMARY | 2025-02-16 22:11 | XMS_ITS | Patient Health Record ---
Author Organization [facility] vices Address [address] [place] [id number] Care Team Providers Care Office Assistance Name Role Phone Ibeth Richardsgail Primary Care Provider Reason For Referral No Information Plan Of Treatment No Information Insurance Providers Payer Name Payer Address Payer Phone Subscriber Number Group Number Insured Name Patient Relationship to Insured Coverage Start Date Coverage End Date [facility] [address] [place] [address] [id number] OHCP Abraham Diego Self - patient is the insured Medicaid CFC after [facility] [address] [place] [id number], MichaelSelf - patient is the [id number]
--- OUTSIDE RECORDS SUMMARY | 2025-02-16 22:11 | XMS_ITS | Clinical Summary ---
Author Organization [facility] Address [id number] [place] [address] Care Team Providers Care Application Assistant Name Role Phone No Pcp, No Pcp Primary Care Provider Unavailabl e Allergies No known active allergies Medications No known medications Active Problems ProblemNoted DateDiagnosed DateWithdrawal from sedative, hypnotic, or anxiolytic drug07/28/2024 Encounters DateTypeDepartmentCare TkzjWduvyypmywi08/25/2025 2:17 AM EDT - 01/22/2025 4:02 AM EDTEmergency [facility] [address] [place] [id number] Derrick Cortez DO Alcoholic intoxication without complication (Primary Dx); Chronic alcohol abuse; Benzodiazepine (tranquilizer) overdose, accidental or unintentional, initial encounter Discharge Disposition: Home01/22/2025Travelfrom Last 3 Months Family History Medical HistoryRelationNameCommentsHeart failureFatherValvular heart disease Paternal GrandfatherRelationNameStatusCommentsFatherPaternal GrandfatherAlive Social History Tobacco UseTypesPacks/DayYears UsedDateSmoking Tobacco: NeverSmokeless Tobacco: Never Tobacco Cessation:Counseling Given: Not Answered [facility] UtilitiesAnswerDate RecordedIn the past 12 months has the [employer], gas, oil, or water [employer] threatened to shut off services in your home?No07/28/2024 PRAPARE - TransportationAnswerDate RecordedIn the past 12 months, has lack of transportation kept you from medical appointments or from getting medications?No 07/28/2024In the past 12 months, has lack of transportation kept you from meetings, work, or from getting things needed for daily living?No07/28/2024 Housing InstabilityAnswerDate RecordedAre you worried or concerned that in the next two months you may not have stable housing that you own, rent or stay in as a part of a household?No07/28/2024Hunger ScreeningAnswerDate RecordedWithin the past 12 months we worried whether our food would run out before we got money to buy more.Never True01/22/2025Within the past 12 months the food we bought just didn't last and we didn't have money to get more.Never True01/22/2025Sex and Gender InformationValueDate RecordedSex Assigned at BirthNot on fileLegal Sex Male07/27/2024 11:38 PM EDTGender IdentityNot on fileSexual OrientationNot on file Last Filed Vital Signs Vital SignReadingTime TakenCommentsBlood Urvkrjyw132/7701/22/2025 3:00 AM EDT Xpcdw683201/22/2025 3:00 AM CQWZwwqsnuxhbt60 ??C (98.6 ??F)01/22/2025 2:15 AM EDT Respiratory Nleq4397 3:00 AM EDTOxygen Ypwkhiwrsa10%01/22/2025 3:00 AM EDTInhaled Oxygen Concentration--Ikjrqb87.8 kg (145 lb)01/22/2025 2:12 AM EDT Tmubwk782.9 cm (6')01/22/2025 2:12 AM EDTBody Mass Index19.6701/22/2025 2:12 AM EDT Plan of Treatment Health MaintenanceDue DateLast DoneCommentsDepression Tgtvrczwj86/16/2016 Influenza Bhwodzd33, 01/28/2005, 05/01/2004, Additional history existsAdult BMI Lmtyeuvrg17Tobacco Bxqrbsipn61/25/2026 01/22/2025DTaP,Tdap and Td Vaccines (7 - Td or Tdap), 01/22/2008, 02/13/2007, Additional history exists Goals GoalPatient Goal TypeAssociated ProblemsRecent ProgressPatient-Stated?Author Return to [facility] Marivel Mclaughlin, NATALIE Note: Evaluation of progress towards goal: Patient plans to return to [facility]. Medical Devices Not on file Procedures Procedure NamePriorityDate/TimeAssociated DiagnosisCommentsECG 12-LEADSTAT 01/22/2025 2:12 AM EDT from Last 3 Months Results * ECG 12 lead (01/22/2025 2:12 AM EDT)Specimen (Source)Anatomical Location / LateralityCollection Method / VolumeCollection TimeReceived Time01/22/2025 2:12 AM EDT Narrative TRACEMASTERVUE - 01/22/2025 6:47 AM EDT Authorizing ProviderResult TypeResult StatusDaniel Caleb Cortez DOECG ORDERABLES Final ResultPerforming OrganizationAddressCity/State/ZIP CodePhone Number TRACEMASTERVUE from Last 3 Months Insurance Advance Directives * Full Code (Latest Code Status on File) Date ActivatedDate InactivatedComments07/28/2024 3:21 AM07/29/2024 6:01 PM Care Teams Team MemberRelationshipSpecialtyStart DateEnd Date No Pcp, [place] [address] [facility]
[2025-02-16 22:13] LABS: INR 1.08; Prothrombin Time 11.4 sec (9.0-11.6)
[2025-02-16 22:17] LABS: Alanine Aminotransferase 94 U/L (16-63); Albumin Globulin Ratio 1.4; Albumin Level 4.6 g/dL (3.4-5.0); Alkaline Phosphatase 87 U/L (46-116); Anion Gap 16.3; Aspartate Amino Transferase 141 U/L (15-37); Blood Urea Nitrogen 14.0 mg/dL (7.0-18.0); Calcium 9.3 mg/dL (8.5-10.1); Carbon Dioxide 27.5 mmol/L (21.0-32.0); Chloride 99 mmol/L (98-107); Estimated GFR (African America >60 (>=60 mL/min/1.73m^2); Estimated GFR (Non-African Ame >60 (>=60 mL/min/1.73m^2); Globulin 3.3 g/dL; Glucose 102 mg/dL (74-106); Potassium 3.8 mmol/L (3.5-5.1); Sodium 139 mmol/L (136-145); Total Protein 7.9 g/dL (6.4-8.2)
[2025-02-16] MEDS: MULTIVIT INFUSN,ADULT 4,VIT K 10 ML, FOLIC ACID 1 MG, THIAMINE HCL 100 MG in DEXTROSE 5... 250 ML IV (22:21)
[2025-02-17] VITALS (10 sets, daily range): BP systolic 132–142; BP diastolic 83–91; PULSE 59–81; TEMP 37.4; O2SAT 97–99
[2025-02-17] MEDS: DIPHENHYDRAMINE HCL 50 MG/ML VIAL 12.5 MG IVP (00:41)
--- NOTE | 2025-02-17 00:53 | PC.NURSE ---
[phone], [address] [place] [address]. I spoke with John, and she requested to talk to this patient. per this patient and his Uncle was accepted by this [facility] and they call him on 02/14/2025 to see if he was ready to be admitted. this patient declined at that time. this patient is requested to be transferred this [facility] now
--- NOTE | 2025-02-17 01:09 | PC.NURSE ---
[facility] as long can find him a ride there. Dr Wilhelm is aware of this and said can his uncle take him I did ask this patient's uncle if he would be will to take him there and he replied yes
[2025-02-17] MEDS: DIAZEPAM 10 MG/2 ML SYRINGE 5 MG IV (01:32)
--- NOTE | 2025-02-17 01:52 | PC.NURSE ---
[phone] and spoke with Gloria ESTRADA( I spoke with John ambriz) and i gave her a patient report. this patient ambulated of of the room and out of the er dept with his uncle, both of them going straight to the Detox center. this patient voices no concerns, needs and shows no signs of distress
== END 2025-02-17 01:47 ==
PROVIDERS: Emergency Provider Emergency Medicine
DX: F10.239 Alcohol dependence with withdrawal, unspecified (principal); R07.89 Other chest pain
CPT/HCPCS: 36415; 80053; 80307; 80320; 84484; 85025; 85610; 93005; 96365; 96366; 96375; 96376; 99285; J1200; J2405; J3360; J3411; J3490